=== PATIENT | male | born 1985 | race Two or more races ===

== ENCOUNTER → 2017-12-03 | Outpatient (CLI) | payer OTHER ==
[2017-12-03 15:43] LABS: ABSOLUTE EOSINOPHILS # (AUTO) 0.1 10^3/uL (0.0-0.6); ABSOLUTE LYMPHOCYTES (AUTO) 1.3 10^3/uL (0.5-4.7); ABSOLUTE MONOCYTES (AUTO) 0.4 10^3/uL (0.1-1.4); ABSOLUTE NEUT (AUTO) 2.5 10^3/uL (1.7-8.2); EOSINOPHILS % (AUTO) 2.7 % (0-6); HEMATOCRIT 44.5 % (37.9-51.0); HEMOGLOBIN 15.2 g/dL (13.5-17.0); LYMPHOCYTES % (AUTO) 30.6 % (13-45); MEAN CORPUSCULAR HEMOGLOBIN 29.4 pg (27.0-33.4); MEAN CORPUSCULAR HGB CONC 34.1 g/dL (32.0-36.0); MEAN CORPUSCULAR VOLUME 86 fl (80-97); MONOCYTES % (AUTO) 8.6 % (3-13); PLATELET COUNT 195 10^3/uL (150-450); RED BLOOD COUNT 5.17 10^6/uL (4.35-5.55); RED CELL DISTRIBUTION WIDTH 12.6 % (11.5-14.0); SEGMENTED NEUTROPHILS % (AUTO) 57.1 % (42-78); TOTAL CELLS COUNTED % (AUTO) 100 %; WHITE BLOOD COUNT 4.4 10^3/uL (4.0-10.5)
--- NOTE | 2017-12-03 16:18 | RADIOLOGY REPORT (SQ) ---
EXAM DESCRIPTION: C SP 3 VWS OR LESS; T SPINE AP/LAT COMPLETED DATE/TIME: 12/03/2017 4:07 pm REASON FOR STUDY: UNSPECIFIED DISTURBANCES OF SKIN SENSATION COMPARISON: None. FINDINGS: Two views cervical spine, AP and lateral: No malalignment. Preserved vertebrae and discs . No fracture or lesion. Lung apices clear. Soft tissues normal. Two views thoracic spine: Very slight curvature to the left, broad. No subluxation. Maintained dmitri tebrae. Maintained discs. Unremarkable mediastinal contours. Clear visualized lungs. IMPRESSION: 1. Unremarkable two-view cervical spine. 2. Very subtle convex left thoracic spine curv ature. 3. No evidence of fracture. Maintained joint spaces throughout. TECHNICAL DOCUMENTATION: JOB ID: [id number] Reading location - IP/workstation name: [email or web address]
--- NOTE | 2017-12-03 16:18 | RADIOLOGY REPORT (SQ) ---
EXAM DESCRIPTION: C SP 3 VWS OR LESS; T SPINE AP/LAT COMPLETED DATE/TIME: 12/03/2017 4:07 pm REASON FOR STUDY: UNSPECIFIED DISTURBANCES OF SKIN SENSATION COMPARISON: None. FINDINGS: Two views cervical spine, AP and lateral: No malalignment. Preserved vertebrae and discs . No fracture or lesion. Lung apices clear. Soft tissues normal. Two views thoracic spine: Very slight curvature to the left, broad. No subluxation. Maintained dmitri tebrae. Maintained discs. Unremarkable mediastinal contours. Clear visualized lungs. IMPRESSION: 1. Unremarkable two-view cervical spine. 2. Very subtle convex left thoracic spine curv ature. 3. No evidence of fracture. Maintained joint spaces throughout. TECHNICAL DOCUMENTATION: JOB ID: [id number] Reading location - IP/workstation name: [email or web address]
[2017-12-03 16:22] LABS: ALANINE AMINOTRANSFERASE 46 U/L (21-72); ALBUMIN 4.5 g/dL (3.5-5.0); ALKALINE PHOSPHATASE 53 U/L (38-126); ANION GAP 10 (5-19); ASPARTATE AMINO TRANSFERASE 32 U/L (17-59); BILIRUBIN,DIRECT 0.3 mg/dL (0.0-0.4); BILIRUBIN,TOTAL 0.5 mg/dL (0.2-1.3); BLOOD UREA NITROGEN 14 mg/dL (7-20); CALCIUM 9.9 mg/dL (8.4-10.2); CARBON DIOXIDE 29 mmol/L (22-30); CHLORIDE 104 mmol/L (98-107); GLUCOSE 88 mg/dL (75-110); POTASSIUM 4.7 mmol/L (3.6-5.0); TOTAL PROTEIN 7.5 g/dL (6.3-8.2)
[2017-12-04 09:33] LABS: CHOLESTEROL 191.75 mg/dL (0-200); TRIGLYCERIDES 101 mg/dL (<150)
[2017-12-04 09:43] LABS: DIRECT LDL 114 mg/dL (<100)
== END ==
LOC: OD 14:59
PROVIDERS: ATTEND Family Medicine Geriatric Medicine
DX: R20.9 Unspecified disturbances of skin sensation (principal); R07.89 Other chest pain; E66.3 Overweight; Z79.899 Other long term (current) drug therapy
CPT/HCPCS: 36415; 72040; 72070; 80053; 80061; 82607; 84443; 85025